=== PATIENT | female | born 1980 | race Two or more races ===

== ENCOUNTER 2017-01-03 11:46 | Emergency (ER) | payer MEDICAID ==
[~2017-01-03] VITALS: Ht 137.2 cm; Wt 53.1 kg
[2017-01-03] MEDS ORDERED: ADVAIR HFA 115-12 GM INH (12:18)
[2017-01-03] MEDS ORDERED: LABETALOL HCL200 MG ORAL (12:18)
[2017-01-03 12:20] VITALS: BP 159/100
--- NOTE | 2017-01-03 12:25 | Emergency Room Report ---
History of Present Illness General Chief Complaint: Eye Problems Source: Patient Present Illness HPI 36 YO Female presents to the ED c/o : bilateral eye redness, discharge, and increased lacrimation x 2 days. Pt. reports symptoms began in the left eye preceded by increased allergies with rhinorrhea and sneezing. denies eye pain. Pt reports moderate thick sticky d/c since this am. Denies FB sensation, Loss of vision, Floaters, Flashing lights, Diplopia/blurry vision. Denies fevers, chills, nausea, vomiting, or joint pain. Denies CP, Palpitations, LOC, AMS,or a sudden severe headache. Allergies: Coded Allergies: No Known Allergies (Unverified , 01/03/17) Patient History Past Medical History: see triage record Past Surgical History: none Pertinent Family History: none Now: No : 1 Para: 1 Reviewed Nursing Documentation: PMH: Agreed, PSxH: Agreed Nursing Documentation-PMH Hx Hypertension: Yes Hx Asthma: Yes Review of Systems All Other Systems: negative except mentioned in HPI Physical Exam Vital Signs Date Time Temp Pulse Resp B/P Pulse Ox O2 Delivery O2 Flow Rate FiO2 01/03/17 12:12 98.1 66 16 159/100 95 Room Air Sp02 EP Interpretation: reviewed, normal General Appearance: no apparent distress, alert, GCS 15, non-toxic Head: normocephalic, atraumatic Eyes: bilateral eye EOMI, bilateral eye PERRL, bilateral eye normal inspection , bilateral eye other - no photophobia, erythema and d/c noted bilaterally., bilateral eye visual acuity - 20/20 left, and bilateral, 20/25 right ENT: hearing grossly normal, normal pharynx, no angioedema, normal voice Neck: full range of motion, supple/symm/no masses Respiratory: lungs clear, normal breath sounds, speaking full sentences Cardiovascular #1: regular rate, rhythm, no edema Musculoskeletal: back normal, gait/station normal, normal range of motion, non- tender Neurologic: alert, oriented x3, responsive, motor strength/tone normal, sensory intact, speech normal Psychiatric: judgement/insight normal, memory normal, mood/affect normal Skin: normal color, no rash, warm/dry, well hydrated Lymphatic: no adenopathy Medical Decision Making PA Attestation Dr. Ferrer is my supervising Physician whom patient management has been discussed with. Diagnostic Impression: Primary Impression: Conjunctivitis of both eyes Qualified Codes: H10.33 - Unspecified acute conjunctivitis, bilateral ER Course Pt presents to the ED c/o : bilateral eye redness, discharge, and increased lacrimation x 2 days. Pt. reports symptoms began in the left eye preceded by increased allergies with rhinorrhea and sneezing. denies eye pain. Pt reports moderate thick sticky d/c since this am. Denies FB sensation, Loss of vision, Floaters, Flashing lights, Diplopia/blurry vision. Ddx considered but are not limited to: corneal abrasion, acute glaucoma, globe rupture, FB, Corneal Ulcer, conjunctivitis. Iridis, orbital cellulitis,keratitis , sinusitis Vital signs: are WNL, pt. is afebrile VA: 20/20 bilateral and left eye, right eye is 20/25 -pt does not wear corrective lenses. H&PE are most consistent with: bacterial conjunctivitis, and allergic rhinitis ORDERS: none at this time. ED INTERVENTIONS: none at this time. DISCHARGE: At this time pt. is stable for d/c to home. Will provide printed patient care instructions, and any necessary prescriptions. Care plan and follow up instructions have been discussed with the patient prior to discharge. Last Vital Signs Date Time Temp Pulse Resp B/P Pulse Ox O2 Delivery O2 Flow Rate FiO2 01/03/17 12:12 98.1 66 16 159/100 95 Room Air Disposition: HOME, SELF-CARE Condition: Stable Scripts Ofloxacin (OCUFLOX) 5 Ml Drops 3 DROP OP BID for 5 Days, #5 ML Prov: Breann Serna 01/03/17 Cetirizine Hcl* (ZYRTEC*) 10 Mg Tablet 10 MG ORAL DAILY for 30 Days, #30 TAB 0 Refills Prov: Breann Serna 01/03/17 Patient Instructions: Bacterial Conjunctivitis, [id number] Additional Instructions: Take medications as directed. Follow up with PCP in 3-5 days Return sooner to ED if new symptoms occur, or current symptoms become worse. - Please note that this Emergency Department Report was dictated using [employer] school technology software, occasionally this can lead to erroneous entry secondary to interpretation by the dictation equipment. Breann Serna January 03, 2017 12:25
[2017-01-03] MEDS ORDERED: ZYRTEC10 MG ORAL ×2 (12:36→12:51)
[2017-01-03] MEDS ORDERED: OCUFLOX5 ML OP ×2 (12:36→12:51)
[2017-01-03 13:05] VITALS: BP 120/70
== END 2017-01-03 13:05 | disposition home or self-care (01) ==
LOC: EMR 12:30
DX: H10.33 Unspecified acute conjunctivitis, bilateral (principal); I10 Essential (primary) hypertension; J45.909 Unspecified asthma, uncomplicated
CPT/HCPCS: 99284

== ENCOUNTER 2020-05-27 14:02 | Inpatient (IN) | payer MEDICAID ==
[~2020-05-27] VITALS: Ht 137.2 cm; Wt 64.8 kg
[~2020-05-27 14:02] MED LIST: ADVAIR HFA 115-12 GM INH; LABETALOL HCL200 MG ORAL; OCUFLOX5 ML OP; ZYRTEC10 MG ORAL
[2020-05-27 14:28] VITALS: BP 178/100
[2020-05-27] MEDS ORDERED: Morphine Sulfate 2mg/ml Inj(IV/IM USE ONLY) IVP ONE ×3 (14:45→18:45)
[2020-05-27] MEDS ORDERED: Omnipaque-300 100ml vial INJ PRN (14:45)
[2020-05-27] MEDS ORDERED: NIFEdipine 10mg cap ORAL SCH (14:45)
[2020-05-27 15:34] LABS: HEMATOCRIT 45.4 % (37.0-47.0); HEMOGLOBIN 16.6 G/DL (12.0-16.0); MEAN CORPUSCULAR VOLUME 96 FL (80-99); PLATELET COUNT 507 K/UL (150-450); RED BLOOD COUNT 4.73 M/UL (4.20-5.40); RED CELL DISTRIBUTION WIDTH 11.5 % (11.6-14.8); WHITE BLOOD COUNT 18.6 K/UL (4.8-10.8)
[2020-05-27 15:35] LABS: INR 0.9 (0.9-1.1)
[2020-05-27 15:45] LABS: LYMPHOCYTES % (AUTO) 16.8 % (20.0-45.0); MONOCYTES % (AUTO) 6.8 % (1.0-10.0); NEUTROPHILS % (AUTO) 74.8 % (45.0-75.0)
[2020-05-27 15:46] LABS: BASOPHILS % (AUTO) 1.1 % (0.0-2.0); EOSINOPHILS % (AUTO) 0.5 % (0.0-3.0)
[2020-05-27 15:51] LABS: APPEARANCE,URINE SLIGHTLY CLOUDY; BILIRUBIN, URINE NEGATIVE (NEGATIVE); COLOR,URINE PALE YELLOW; GLUCOSE, URINE (UA) NEGATIVE (NEGATIVE); KETONES,URINE NEGATIVE (NEGATIVE); LEUKOCYTE ESTERASE ,URINE 1+ (NEGATIVE); NITRITE,URINE NEGATIVE (NEGATIVE); PH,URINE 7 (4.5-8.0); PROTEIN,URINE NEGATIVE (NEGATIVE); UROBILINOGEN,URINE NORMAL MG/DL (0.0-1.0)
[2020-05-27 15:59] LABS: ALANINE AMINOTRANSFERASE 113 U/L (12-78); ALBUMIN 4.3 G/DL (3.4-5.0); ALBUMIN/GLOBULIN RATIO 1.1 (1.0-2.7); ALKALINE PHOSPHATASE 132 U/L (46-116); ANION GAP 10 mmol/L (5-15); ASPARTATE AMINO TRANSFERASE 104 U/L (15-37); BILIRUBIN,TOTAL 0.5 MG/DL (0.2-1.0); BLOOD UREA NITROGEN 7 mg/dL (7-18); CALCIUM 9.5 MG/DL (8.5-10.1); CARBON DIOXIDE 31 MMOL/L (21-32); CHLORIDE 102 MMOL/L (98-107); CREATININE 0.7 MG/DL (0.55-1.30); POTASSIUM 2.8 MMOL/L (3.5-5.1); SODIUM 143 MMOL/L (136-145)
--- NOTE | 2020-05-27 16:25 | Emergency Room Report ---
History of Present Illness General Chief Complaint: Abdominal Pain Source: Patient Present Illness HPI 40-year-old female with recent history of that occurred 6 months ago and hypertension currently taking nifedipine here complaining of sudden onset of right upper quadrant abdominal pain with few bouts of nonbloody emesis and feeling nauseated. Denies any diarrhea, constipation, blood in stool. Denies any fever and chills, chest pain, shortness of breath, headache and dizziness. Patient no longer breast-feeds. 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 Patient denies any urinary symptoms at this time. Denies . Has not taken medication for symptom relief. Denies any drinking alcohol or tobacco smoke marijuana use. Does not recall whether the symptoms started after eating anything different. Denies any acid reflux. Also feels flatulence and reports that the abdomen was very distended last night however was able to pass gas earlier today. Allergies: Coded Allergies: No Known Allergies (Unverified , 01/03/17) COVID-19 Screening Contact w/high risk pt: No Experienced COVID-19 symptoms?: No COVID-19 Testing performed WOOD TYPE CUTTER: No Patient History Past Medical History: see triage record Past Surgical History: none Pertinent Family History: none Last Menstrual Period: 04/24/20 Now: No Immunizations: UTD Reviewed Nursing Documentation: PMH: Agreed; PSxH: Agreed Nursing Documentation-PMH Past Medical History: No History, Except For Hx Hypertension: Yes Hx Asthma: Yes Review of Systems All Other Systems: negative except mentioned in HPI Physical Exam Vital Signs Date Time Temp Pulse Resp B/P (MAP) Pulse Ox O2 Delivery O2 Flow Rate FiO2 05/27/20 14:19 98.2 74 17 178/100 (126) 98 Room Air Sp02 EP Interpretation: reviewed, normal General Appearance: no apparent distress, alert, GCS 15, non-toxic Head: normocephalic, atraumatic Eyes: bilateral eye normal inspection, bilateral eye PERRL ENT: hearing grossly normal, normal pharynx, no angioedema, normal voice Neck: full range of motion, supple/symm/no masses Respiratory: chest non-tender, lungs clear, normal breath sounds, no rhonchi, no retraction, speaking full sentences Cardiovascular #1: regular rate, rhythm, no edema Gastrointestinal: normal bowel sounds, non tender, soft, no guarding, no hernia, no pulsatile mass, no rebound Rectal: deferred Genitourinary: no CVA tenderness Musculoskeletal: back normal, no calf tenderness Neurologic: alert, motor strength/tone normal, oriented x3, sensory intact, responsive, speech normal Psychiatric: judgement/insight normal, memory normal, mood/affect normal, no suicidal/homicidal ideation Skin: no rash Lymphatic: no adenopathy Medical Decision Making PA Attestation All my diagnosis and treatment plans were reviewed ad discussed with my supervising physician Dr. Lacey Diagnostic Impression: Primary Impression: Cholecystitis Additional Impression: Cholelithiasis ER Course 40-year-old female with recent history of that occurred 6 months ago and hypertension currently taking nifedipine here complaining of sudden onset of right upper quadrant abdominal pain with few bouts of nonbloody emesis and f eeling nauseated. Denies any diarrhea, constipation, blood in stool. Denies any fever and chills, chest pain, shortness of breath, headache and dizziness. Patient no longer breast-feeds. 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 Patient denies any urinary symptoms at this time. Denies . Has not taken medication for symptom relief. Denies any drinking alcohol or tobacco smoke marijuana use. Does not recall whether the symptoms started after eating anything different. Denies any acid reflux. Also feels flatulence and reports that the abdomen was very disten ded last night however was able to pass gas earlier today. Ddx considered but are not limited to: appendicitis, cholecystis, gastritis, gastroenteritis, UTI, pyelonephritis, SBO, diverticulitis, Vital signs: are WNL, pt. is afebrile H&PE are most consistent with: Cholecystitis, cholelithiasis ORDERS: abdominal CT, abdominal pain set, EKG, abdominal ultrasound ED INTERVENTIONS: NS bolus, morphine, Zofran, Pepcid, Zosyn, potassium Patient was admitted with diagnosis of cholecystitis to Dr. Reyes under supervision of : Abhijit pt stable at time of admission EKG Diagnostic Results Rate: normal Rhythm: NSR ST Segments: no acute changes Other Impression No acute ST changes CT/MRI/US Diagnostic Results CT/MRI/US Diagnostic Results #1: Imaging Test Ordered: CT abdomen pelvis without contrast Impression FINDINGS: Lung bases: No significant abnormality. ABDOMEN: Liver: The liver is diffusely hypodense suggestive of steatosis. Gallbladder and bile ducts: Gallbladder distention. No calcified gallstones. Pancreas: No significant abnormality. Spleen: No significant abnormality. Adrenals: No significant abnormality. Kidneys and ureters: Small fluid attenuating left renal lesions, likely cysts. No calcified renal or ureteral calculi. No hydronephrosis. Stomach and bowel: No significant abnormality. Bowel is nondilated. PELVIS: Appendix: No findings to suggest acute appendicitis. Bladder: No significant abnormality. Reproductive: Unremarkable as visualized. ABDOMEN and PELVIS: Intraperitoneal space: Trace pelvic free fluid is likely physiologic. No free air or loculated fluid collection. Bones/joints: No acute fracture or malalignment. Soft tissues: Small fat containing periumbilical hernia. Vasculature: No significant abnormality. No abdominal aortic aneurysm. Lymph nodes: No significant abnormality. IMPRESSION: 1. Gallbladder distention. No calcified gallstones. 2. Trace pelvic free fluid is likely physiologic. 3. Hepatic steatosis. CT/MRI/US Diagnostic Results #2: Imaging Test Ordered: RUQ abd US Impression cholelithiasis at gallbladder neck with gallbladder thickening Last Vital Signs Date Time Temp Pulse Resp B/P (MAP) Pulse Ox O2 Delivery O2 Flow Rate FiO2 05/27/20 15:04 74 178/100 05/27/20 14:28 17 Room Air 05/27/20 14:28 98.2 98 Disposition: ADMITTED INPATIENT Condition: Serious Referrals: NON PHYSICIAN (PCP) Rahat Perera May 27, 2020 16:25
[2020-05-27 16:30] VITALS: BP 145/87
[2020-05-27] MEDS ORDERED: Piperacillin/Tazobactam 3.375 GM in NS 110 ML IVPB ONE (16:45)
--- NOTE | 2020-05-27 16:54 | Diagnostic Imaging Report ---
EXAM: CT Abdomen and Pelvis With Intravenous Contrast CLINICAL HISTORY: ABD PAIN TECHNIQUE: Axial computed tomography images of the abdomen and pelvis with intravenous contrast. CTDI is 5.7 mGy and DLP is 280.80 mGy-cm. One or more of the following dose reduction techniques were used: automated exposure control, adjustment of the mA and/or kV according to patient size, use of iterative reconstruction technique. COMPARISON: No relevant prior studies available. FINDINGS: Lung bases: No significant abnormality. ABDOMEN: Liver: The liver is diffusely hypodense suggestive of steatosis. Gallbladder and bile ducts: Gallbladder distention. No calcified gallstones. Pancreas: No significant abnormality. Spleen: No significant abnormality. Adrenals: No significant abnormality. Kidneys and ureters: Small fluid attenuating left renal lesions, likely cysts. No calcified renal or ureteral calculi. No hydronephrosis. Stomach and bowel: No significant abnormality. Bowel is nondilated. PELVIS: Appendix: No findings to suggest acute appendicitis. Bladder: No significant abnormality. Reproductive: Unremarkable as visualized. ABDOMEN and PELVIS: Intraperitoneal space: Trace pelvic free fluid is likely physiologic. No free air or loculated fluid collection. Bones/joints: No acute fracture or malalignment. Soft tissues: Small fat containing periumbilical hernia. Vasculature: No significant abnormality. No abdominal aortic aneurysm. Lymph nodes: No significant abnormality. IMPRESSION: 1. Gallbladder distention. No calcified gallstones. 2. Trace pelvic free fluid is likely physiologic. 3. Hepatic steatosis.
[2020-05-27 18:15] VITALS: BP 141/83
--- NOTE | 2020-05-27 19:07 | Diagnostic Imaging Report ---
EXAM: US Abdomen Limited, Right Upper Quadrant CLINICAL HISTORY: PAIN TECHNIQUE: Real-time ultrasound of the right upper quadrant with image documentation. COMPARISON: CT 05/27/2020 FINDINGS: Limitations: Body habitus and bowel gas. Liver: Diffusely increased hepatic echogenicity is suggestive of steatosis. The portal vein is patent with normal direction of flow. No focal hepatic lesions. Gallbladder: Cholelithiasis. Gallbladder distention. Thickened gallbladder wall measures up to 6 mm. Mild pericholecystic fluid. Common bile duct: Mildly dilated common bile duct measures up to 7 mm. No stones. Pancreas: Unremarkable as visualized. Right kidney: Small right renal cyst and possible small cortical calcification. No hydronephrosis. No solid mass. IMPRESSION: 1. Cholelithiasis, gallbladder wall thickening, biliary dilatation, and pericholecystic fluid can be seen in the setting of acute cholecystitis. 2. Hepatic steatosis.
[2020-05-27] MEDS ORDERED: Mylanta II UD 30ml ORAL PRN (20:00)
[2020-05-27] MEDS ORDERED: Albuterol/Ipratropium 3ml neb HHN PRN (20:00)
--- NOTE | 2020-05-27 20:24 | History and Physical ---
History of Present Illness General Date patient seen: May 27, 2020 Reason for Hospitalization: Abdominal Pain Present Illness HPI Mrs. Younger is a 40F with PMH of Histiocytosis X, HTN, asthma, and 2 C-sections who presents for worsening abdominal pain. Patient reports on Thursday developing acute onset RUQ abdominal pain; pain is sharp, non-radiating, 5-10/10 scale, with no alleviating factors. She notes eating makes it worse. Denies previous episodes in the past. She has associated nausea, chills, and dyspepsia. Denies fevers, sob, chest pain, epigastric pain, constipation, diarrhea, or dysuria. Prior to Thursday patient was feeling well. She is able to carry out all her ADL's at home and walk up multiple flights of stairs without issues. No recent asthma exacerbations; reports "rarely using her inhalers." Denies any recent illnesses, sick contacts, or travels. She does not drink alcohol. Rest of 10 point ROS is negative besides what stated above. In the ED, patient is hemodynamically stable and found to have elevated WBC w/ US showing cholelithiasis w/ gallbladder wall thickening and pericholecystic fluid concerning for cholecystitis. She will be admitted to med/surg, NPO, on abx pending possible surgery tomorrow. PMH: Histiocytosis X, asthma, HTN Sx: Splenectomy, C-sextion x2 (most recent 7 months ago) Fx: mother and father had diabetes, father had kidney disease All: nka Soc: denies smoking, alcohol use, or recreational drug use Allergies: Coded Allergies: No Known Allergies (Unverified , 01/03/17) COVID-19 Screening Contact w/high risk pt: No Experienced COVID-19 symptoms?: No Medication History Scheduled Cetirizine Hcl* (Zyrtec*), 10 MG ORAL DAILY Fluticasone/Salmeterol (Advair Hfa 115-21 Mcg Inhaler), 2 PUFFS INH EVERY 12 HOURS, (Reported) Labetalol Hcl* (Normodyne*), 200 MG ORAL TWICE A DAY, (Reported) Ofloxacin (Ocuflox), 3 DROP OP BID Patient History Healthcare decision maker Resuscitation status Advanced Directive on File Review of Systems Constitutional: Reports: chills; Denies: no symptoms, see HPI, sweats, fever, malaise, weakness, other Eye: Denies: no symptoms, see HPI, eye pain, blurred vision, tearing, double vision, nose pain, nose congestion, acuity changes, discharge, other ENT: Denies: no symptoms, see HPI, ear pain, ear discharge, nose pain, nose congestion, throat pain, throat swelling, mouth pain, hearing loss, nasal discharge, other Respiratory: Denies: no symptoms, see HPI, cough, orthopnea, shortness of breath, stridor, wheezing, CARVAJAL, sputum, other Cardiovascular: Denies: no symptoms, see HPI, chest pain, edema, palpitations, syncope, PND, other Gastrointestinal: Reports: abdominal pain, constipation, nausea Genitourinary: Denies: no symptoms, see HPI, discharge, dysuria, frequency, hematuria, pain, retention, incontinence, urgency, vag bleed/dc, other Musculoskeletal: Denies: no symptoms, see HPI, back pain, gout, joint pain, joint swelling, muscle pain, muscle stiffness, other Skin: Denies: no symptoms, see HPI, rash, change in color, change in hair/nails , dryness, lesions, other Psychiatric: Denies: no symptoms, see HPI, prior hx, anxiety, depressed feelings, emotional problems, SI, HI, hallucinations, other Neurological: Denies: no symptoms, see HPI, headache, numbness, paresthesia, seizure, tingling, tremors, focal weakness, syncope, dizziness, other Endocrine: Denies: no symptoms, see HPI, excessive sweating, flushing, intolerance to temperature, increased thirst, increased urine, unexplained weight loss, other Hematologic/Lymphatic: Denies: no symptoms, see HPI, anemia, blood clots, easy bleeding, easy bruising, swollen glands, diathesis, other Physical Exam General Appearance: no apparent distress, alert, alert oriented x3 HEENT: normocephalic, atraumatic, PERRL, supple, no JVD Neck: normal alignment, supple Respiratory/Chest: lungs clear, normal breath sounds, no respiratory distress Cardiovascular/Chest: normal rate, regular rhythm, no JVD Abdomen: normal bowel sounds, soft, no organomegaly, other - RUQ tenderness, +christine sign Extremities: normal range of motion, non-tender, non-pitting Neurologic: land checker II-XII grossly normal, oriented x 3 Last 24 Hour Vital Signs Date Time Temp Pulse Resp B/P (MAP) Pulse Ox O2 Delivery O2 Flow Rate FiO2 05/27/20 18:15 98.1 83 18 141/83 100 Room Air 05/27/20 16:30 98.2 74 17 145/87 98 Room Air 05/27/20 15:35 98.2 05/27/20 15:35 98.2 05/27/20 15:04 74 178/100 05/27/20 14:28 74 17 Room Air 05/27/20 14:28 98.2 74 17 178/100 98 Room Air 05/27/20 14:19 98.2 74 17 178/100 (126) 98 Room Air Laboratory Tests Test 05/27/20 15:00 White Blood Count 18.6 K/UL (4.8-10.8) H Red Blood Count 4.73 M/UL (4.20-5.40) Hemoglobin 16.6 G/DL (12.0-16.0) H Hematocrit 45.4 % (37.0-47.0) Mean Corpuscular Volume 96 FL (80-99) Mean Corpuscular Hemoglobin 35.1 PG (27.0-31.0) H Mean Corpuscular Hemoglobin Concent 36.6 G/DL (32.0-36.0) H Red Cell Distribution Width 11.5 % (11.6-14.8) L Platelet Count 507 K/UL (150-450) H Mean Platelet Volume 8.3 FL (6.5-10.1) Neutrophils (%) (Auto) 74.8 % (45.0-75.0) Lymphocytes (%) (Auto) 16.8 % (20.0-45.0) L Monocytes (%) (Auto) 6.8 % (1.0-10.0) Eosinophils (%) (Auto) 0.5 % (0.0-3.0) Basophils (%) (Auto) 1.1 % (0.0-2.0) Prothrombin Time 10.4 SEC (9.30-11.50) Prothromb Time International Ratio 0.9 (0.9-1.1) Activated Partial Thromboplast Time 28 SEC (23-33) Urine Color Pale yellow Urine Appearance Slightly cloudy Urine pH 7 (4.5-8.0) Urine Specific [place] 1.010 (1.005-1.035) Urine Protein Negative (NEGATIVE) Urine Glucose (UA) Negative (NEGATIVE) Urine Ketones Negative (NEGATIVE) Urine Blood 1+ (NEGATIVE) H Urine Nitrite Negative (NEGATIVE) Urine Bilirubin Negative (NEGATIVE) Urine Urobilinogen Normal MG/DL (0.0-1.0) Urine Leukocyte Esterase 1+ (NEGATIVE) H Urine RBC 2-4 /HPF (0 - 2) H Urine WBC 2-4 /HPF (0 - 2) Urine Squamous Epithelial Cells Moderate /LPF (NONE/OCC) H Urine Bacteria Few /HPF (NONE) Sodium Level 143 MMOL/L (136-145) Potassium Level 2.8 MMOL/L (3.5-5.1) L Chloride Level 102 MMOL/L (98-107) Carbon Dioxide Level 31 MMOL/L (21-32) Anion Gap 10 mmol/L (5-15) Blood Urea Nitrogen 7 mg/dL (7-18) Creatinine 0.7 MG/DL (0.55-1.30) Estimat Glomerular Filtration Rate > 60 mL/min (>60) Glucose Level 111 MG/DL (74-106) H Calcium Level 9.5 MG/DL (8.5-10.1) Total Bilirubin 0.5 MG/DL (0.2-1.0) Aspartate Amino Transf (AST/SGOT) 104 U/L (15-37) H Alanine Aminotransferase (ALT/SGPT) 113 U/L (12-78) H Alkaline Phosphatase 132 U/L (46-116) H Troponin I 0.000 ng/mL (0.000-0.056) Total Protein 8.2 G/DL (6.4-8.2) Albumin 4.3 G/DL (3.4-5.0) Globulin 3.9 g/dL Albumin/Globulin Ratio 1.1 (1.0-2.7) Lipase 169 U/L (73-393) Urine Opiates Screen Negative (NEGATIVE) Urine Barbiturates Screen Negative (NEGATIVE) Phencyclidine (PCP) Screen Negative (NEGATIVE) Urine Amphetamines Screen Negative (NEGATIVE) Urine Benzodiazepines Screen Negative (NEGATIVE) Urine Cocaine Screen Negative (NEGATIVE) Urine Marijuana (THC) Screen Negative (NEGATIVE) Serum Alcohol < 3 mg/dL Height (Feet): 4 Height (Inches): 6.00 Weight (Pounds): 127 Medications Current Medications Medications (Trade) Dose Ordered Sig/Christian Route PRN Reason Start Time Stop Time Status Last Admin Dose Admin Acetaminophen (Tylenol) 650 mg Q4H PRN ORAL Temp >100.5 05/27/20 20:00 06/26/20 19:59 Al Hydroxide/Mg Hydroxide (Mylanta II) 30 ml Q6H PRN ORAL dyspepsia 05/27/20 20:00 06/26/20 19:59 Albuterol/ Ipratropium (Albuterol/ Ipratropium) 3 ml Q6H PRN HHN Shortness of Breath 05/27/20 20:00 06/01/20 19:59 Bisacodyl (Dulcolax) 10 mg HSPRN PRN RECTAL Constipation 05/27/20 21:00 08/25/20 20:59 Dextrose (Dextrose 50%) 25 ml Q30M PRN IV Hypoglycemia 05/27/20 20:00 08/25/20 19:59 Dextrose (Dextrose 50%) 50 ml Q30M PRN IV Hypoglycemia 05/27/20 20:00 08/25/20 19:59 Heparin Sodium (Porcine) (Heparin 5000 units/ml) 5,000 units EVERY 12 HOURS SUBQ 05/27/20 21:00 07/11/20 20:59 UNV Morphine Sulfate (Morphine Sulfate) 2 mg Q4H PRN IVP Severe Pain (Pain Scale 7-10) 05/27/20 20:00 06/03/20 19:59 Nifedipine (Adalat) 10 mg NOW ORAL 05/27/20 14:45 06/26/20 14:44 05/27/20 15:04 Nifedipine (Procardia XL) 30 mg DAILY ORAL 05/28/20 09:00 06/27/20 08:59 UNV Ondansetron HCl (Zofran) 4 mg Q6H PRN IVP Nausea & Vomiting 05/27/20 20:00 06/26/20 19:59 Piperacillin Sod/ Tazobactam Sod 3.375 gm/Sodium Chloride 110 ml @ 220 mls/hr Q6HR IVPB 05/28/20 00:00 06/04/20 00:00 UNV Polyethylene Glycol (Miralax) 17 gm HSPRN PRN ORAL Constipation 05/27/20 21:00 06/26/20 20:59 Sodium Chloride 1,000 ml @ 100 mls/hr Q10H IVLG 05/27/20 21:00 06/26/20 20:59 UNV Sodium Chloride 1,000 ml @ 100 mls/hr Q10H ONCE IV 05/27/20 14:45 05/28/20 00:44 05/27/20 15:05 Assessment/Plan Assessment/Plan: Mrs. Younger is a 40F with PMH of Histiocytosis X, asthma, and HTN who presents for cholecystitis A: # RUQ Pain 2/2 Cholecystitis # Cholelithiasis # Transaminitis 2/2 Cholecystitis # Leukocytosis # Hypokalemia # Hx of Histocytosis X # Hx of Splenectomy # Hx of Asthma # Essential HTN - uncontrolled P: - hemodynamically stable - US reviewed showing cholelithiasis w/ signs of cholecystitis - gallbladder wall thickening and pericholecystic fluid - slightly dilated CBD at 7mm, elevated alk phos may consider choledocholithiasis - Strict NPO besides ice chips/meds - continue zosyn for gram neg. and anaerobic coverage - IVF - electrolyte repletion - EKG: reviewed showing nsr, without acute ST changes or intraventricular abnormalities. - RCRI score 0 - deeming her low risk for intermediate risk surgery - METS > 4, able to walk multiple flights of stairs without issues - Surgery, Dr. Baird is consulted and to follow up - CM CODE: Full GI: none Fluids: NS 100 cc DVT: Heparin 5000 mg BID, hold morning dose Diet: NPO Abx: zosyn Dispo: pending cholecystomy In addition to the usual care above I spent additional time reviewing records in the EMR and paper charts including physician documentation, nursing documentation, lab results, imaging and clinical documentation. Total time included was 33 min. Advanced care planning 17 minutes was spent which included discussion of both acute and chronic medical illnesses, code status, goals of care and advanced directives and POLST. Time spent on this encounter was 80 minutes which included 45 minutes of counseling and care coordination. I discussed with the nurse at bedside and surgery Dr. Baird. Time of note may not reflect time patient was seen. Josué Gomez D.O May 27, 2020 20:24
[2020-05-27] MEDS ORDERED: Heparin 5000 units/ml inj SUBQ SCH (21:00)
[2020-05-27] MEDS ORDERED: Miralax 17gm pkt ORAL PRN (21:00)
[2020-05-27 21:10] VITALS: BP 136/78
--- NOTE | 2020-05-27 21:10 | General Progress Note ---
Advance Care Planning Advance Care Planning Advance Care Planning [facility] An independent Hospitalist group, where every patient is our [facility] Internal Medicine Hospitalist Advanced Care Planning Note Please contact us at Date of Discussion: A [id number] discussion with the patient regarding the patient's advanced care planning took place during this hospitalization on the above date. The discussion included the explanation and discussion of advance directives and associated forms/documents, as well as the patient's current code status. We also discussed at length the patient's medical conditions (both acute and chroni c), general prognosis, treatment options, and goals of care. The following summarizes the discussion: Advance Care Planning/Goals of Care: - Will attempt to fill out an AD and/or POLST with the patient prior to discharge, if not already completed - Continue current evaluation and management of any acute and chronic medical issues - Will continue to support the patient/family - Will continue to discuss both short- and long-term goals of care DPOA-HC/Surrogate Decision Maker: None currently appointed Code Status: Full Code Advanced Care Planning Forms/Documents Completed: Deferred until later encounter/visit A total of 16 minutes was spent on this discussion, including counseling, answering questions, and completing, if any, pertinent advanced care planning forms/documents. Time of note may not reflect time of encounter. Josué Gomez D.O May 27, 2020 21:10
[2020-05-27] MEDS: Piperacillin/Tazobactam 3.375 GM in NS 110 ML IVPB SCH (22:13)
[2020-05-28] MEDS: Morphine Sulfate 2mg/ml Inj(IV/IM USE ONLY) IVP PRN ×2 (00:49→08:52)
[2020-05-28 04:00] VITALS: BP 142/88
[2020-05-28] MEDS: Piperacillin/Tazobactam 3.375 GM in NS 110 ML IVPB SCH ×3 (04:53→20:53)
[2020-05-28 07:18] LABS: BASOPHILS % (AUTO) 1.6 % (0.0-2.0); HEMATOCRIT 44.3 % (37.0-47.0); LYMPHOCYTES % (AUTO) 14.6 % (20.0-45.0); MEAN CORPUSCULAR VOLUME 93 FL (80-99); MONOCYTES % (AUTO) 6.6 % (1.0-10.0); NEUTROPHILS % (AUTO) 77.2 % (45.0-75.0); PLATELET COUNT 535 K/UL (150-450); RED BLOOD COUNT 4.78 M/UL (4.20-5.40); RED CELL DISTRIBUTION WIDTH 11.6 % (11.6-14.8); WHITE BLOOD COUNT 13.8 K/UL (4.8-10.8)
[2020-05-28 07:53] LABS: ALANINE AMINOTRANSFERASE 579 U/L (12-78); ALBUMIN 3.8 G/DL (3.4-5.0); ALBUMIN/GLOBULIN RATIO 1.1 (1.0-2.7); ALKALINE PHOSPHATASE 252 U/L (46-116); ANION GAP 11 mmol/L (5-15); ASPARTATE AMINO TRANSFERASE 531 U/L (15-37); BILIRUBIN,TOTAL 3.1 MG/DL (0.2-1.0); BLOOD UREA NITROGEN 7 mg/dL (7-18); CALCIUM 8.8 MG/DL (8.5-10.1); CARBON DIOXIDE 25 MMOL/L (21-32); CHLORIDE 106 MMOL/L (98-107); CHOLESTEROL 150 MG/DL (< 200); CREATININE 0.6 MG/DL (0.55-1.30); HDL CHOLESTEROL 34 MG/DL (40-60); POTASSIUM 3.2 MMOL/L (3.5-5.1); SODIUM 142 MMOL/L (136-145); TRIGLYCERIDES 196 MG/DL (30-150)
[2020-05-28 07:55] LABS: BILIRUBIN,DIRECT 2.1 MG/DL (0.0-0.3)
[2020-05-28 08:00] VITALS: BP 139/86
[2020-05-28] MEDS ORDERED: Potassium Chloride 10 MEQ in D5 1/2NS 1,000 ML IV SCH (11:00)
[2020-05-28 12:00] VITALS: BP 129/83
--- NOTE | 2020-05-28 12:13 | General Progress Note ---
Subjective Date patient seen: May 28, 2020 ROS Limited/Unobtainable: No Constitutional: Denies: no symptoms, chills, diaphoresis, fever, malaise, weakness, other HEENT: Denies: no symptoms, eye pain, blurred vision, tearing, double vision, ear pain, ear discharge, nose pain, nose congestion, throat pain, throat swelling, mouth pain, mouth swelling, other Cardiovascular: Denies: no symptoms, chest pain, edema, irregular heart rate, lightheadedness, palpitations, syncope, other Respiratory: Denies: no symptoms, cough, orthopnea, shortness of breath, SOB with excertion, SOB at rest, sputum, stridor, wheezing, other Gastrointestinal/Abdominal: Reports: no symptoms, abdomen distended, abdominal pain, black stools, tarry stools, blood in stool, constipated, diarrhea, difficulty swallowing, nausea, poor appetite, poor fluid intake, rectal bleeding , vomiting, other Genitourinary: Denies: no symptoms, burning, discharge, frequency, flank pain, hematuria, incontinence, pain, urgency, other Neurologic/Psychiatric: Denies: no symptoms, anxiety, depressed, emotional problems, headache, numbness, paresthesia, pre-existing deficit, seizure, tingling, tremors, weakness, other Endocrine: Denies: no symptoms, excessive sweating, flushing, intolerance to cold, intolerance to heat, increased hunger, increased thirst, increased urine, unexplained weight gain, unexplained weight loss, other Allergies: Coded Allergies: No Known Allergies (Unverified , 01/03/17) Subjective no acute events overnight. Patient feels better this morning but still has mild RUQ pain. No fevers or chills. Pending MRCP today. Objective Last 24 Hour Vital Signs Date Time Temp Pulse Resp B/P (MAP) Pulse Ox O2 Delivery O2 Flow Rate FiO2 05/28/20 09:00 Room Air 05/28/20 08:52 77 139/86 05/28/20 08:00 98.5 77 17 139/86 (103) 96 05/28/20 05:32 98.1 05/28/20 04:00 97.8 82 18 142/88 (106) 94 05/28/20 01:19 98.1 05/27/20 21:42 Room Air 05/27/20 21:15 98.1 05/27/20 21:10 98.3 80 16 136/78 100 Room Air 05/27/20 21:10 98.3 80 16 136/78 100 Room Air 05/27/20 18:15 98.1 83 18 141/83 100 Room Air 05/27/20 16:30 98.2 74 17 145/87 98 Room Air 05/27/20 15:35 98.2 05/27/20 15:35 98.2 05/27/20 15:04 74 178/100 05/27/20 14:28 74 17 Room Air 05/27/20 14:28 98.2 74 17 178/100 98 Room Air 05/27/20 14:19 98.2 74 17 178/100 (126) 98 Room Air Intake and Output 05/27/20 05/28/20 19:00 07:00 Intake Total 1465.0 ml Balance 1465.0 ml Intake IV Total 1465.0 ml # Voids 5 Laboratory Tests 05/27/20 15:00: White Blood Count 18.6H, Red Blood Count 4.73, Hemoglobin 16.6H, Hematocrit 45.4, Mean Corpuscular Volume 96, Mean Corpuscular Hemoglobin 35.1H, Mean Corpuscular Hemoglobin Concent 36.6H, Red Cell Distribution Width 11.5L, Platelet Count 507H, Mean Platelet Volume 8.3, Neutrophils (%) (Auto) 74.8, Lymphocytes (%) (Auto) 16.8L, Monocytes (%) (Auto) 6.8, Eosinophils (%) (Auto) 0.5, Basophils (%) (Auto) 1.1, Prothrombin Time 10.4, Prothromb Time International Ratio 0.9, Activated Partial Thromboplast Time 28, Urine Color Pale yellow, Urine Appearance Slightly cloudy, Urine pH 7, Urine Specific [place] 1.010, Urine Protein Negative, Urine Glucose (UA) Negative, Urine Ketones Negative, Urine Blood 1+H, Urine Nitrite Negative, Urine Bilirubin Negative, Urine Urobilinogen Normal, Urine Leukocyte Esterase 1+H, Urine RBC 2- 4H, Urine WBC 2-4, Urine Squamous Epithelial Cells ModerateH, Urine Bacteria Few, Sodium Level 143, Potassium Level 2.8L, Chloride Level 102, Carbon Dioxide Level 31, Anion Gap 10, Blood Urea Nitrogen 7, Creatinine 0.7, Estimat Glomerular Filtration Rate > 60, Glucose Level 111H, Calcium Level 9.5, Total Bilirubin 0.5, Aspartate Amino Transf (AST/SGOT) 104H, Alanine Aminotransferase (ALT/SGPT) 113H, Alkaline Phosphatase 132H, Troponin I 0.000, Total Protein 8.2, Albumin 4.3, Globulin 3.9, Albumin/Globulin Ratio 1.1, Lipase 169, Urine Opiates Screen Negative, Urine Barbiturates Screen Negative, Phencyclidine (PCP) Screen Negative, Urine Amphetamines Screen Negative, Urine Benzodiazepines Screen Neg ative, Urine Cocaine Screen Negative, Urine Marijuana (THC) Screen Negative, Serum Alcohol < 3 05/28/20 06:15: White Blood Count 13.8H, Red Blood Count 4.78, Hemoglobin 16.0, Hematocrit 44.3, Mean Corpuscular Volume 93, Mean Corpuscular Hemoglobin 33.4H, Mean Corpuscular Hemoglobin Concent 36.1H, Red Cell Distribution Width 11.6, Platelet Count 535H, Mean Platelet Volume 7.0, Neutrophils (%) (Auto) 77.2H, Lymphocytes (%) (Auto) 14.6L, Monocytes (%) (Auto) 6.6, Eosinophils (%) (Auto) 0.0, Basophils (%) (Auto) 1.6, Sodium Level 142, Potassium Level 3.2L, Chloride Level 106, Carbon Dioxide Level 25, Anion Gap 11, Blood Urea Nitrogen 7, Creatinine 0.6, Estimat Glomerular Filtration Rate > 60, Glucose Level 108H, Calcium Level 8.8, Total Bilirubin 3.1H, Aspartate Amino Transf (AST/SGOT) 531H, Alanine Aminotransferase (ALT/SGPT) 579H, Alkaline Phosphatase 252H, Total Protein 7.4, Albumin 3.8, Globulin 3.6, Albumin/Globulin Ratio 1.1, Hemoglobin A1c 5.5, Direct Bilirubin 2.1H, Triglycerides Level 196H, Cholesterol Level 150, LDL Cholesterol 79, HDL Cholesterol 34L, Cholesterol/HDL Ratio 4.4 Height (Feet): 4 Height (Inches): 6.00 Weight (Pounds): 131 General Appearance: no apparent distress, alert EENT: PERRL/EOMI Neck: normal alignment, normal inspection Cardiovascular: normal rate, regular rhythm, regularly irregular Respiratory/Chest: lungs clear, normal breath sounds Abdomen: normal bowel sounds, soft - mild RUQ pain Extremities: normal range of motion, non-tender Edema: no edema noted Arm (L), no edema noted Arm (R), no edema noted Leg (L), no edema noted Leg (R), no edema noted Pedal (L), no edema noted Pedal (R), no edema noted Generalized Neurologic: ceo & founder II-XII grossly normal, oriented x 3 Assessment/Plan Assessment/Plan: Mrs. Younger is a 40F with PMH of Histiocytosis X, asthma, and HTN who presents for cholecystitis A: # RUQ Pain 2/2 Cholecystitis w/ possible Choledocholithiasis # Cholelithiasis # Onstructive Jaundice 2/2 ?Choledocholithiasis # Transaminitis 2/2 Cholecystitis # Leukocytosis # Hypokalemia # Hx of Histocytosis X # Hx of Splenectomy # Hx of Asthma # Essential HTN - uncontrolled P: - hemodynamically stable - US reviewed showing cholelithiasis w/ signs of cholecystitis - gallbladder wall thickening and pericholecystic fluid - f/u MRCP with worsening cholestatic pattern and elevated LFTs - Strict NPO besides ice chips/meds - continue zosyn for gram neg. and anaerobic coverage - IVF - electrolyte repletion - EKG: reviewed showing nsr, without acute ST changes or intraventricular abnormalities. - RCRI score 0 - deeming her low risk for intermediate risk surgery - METS > 4, able to walk multiple flights of stairs without issues - Surgery, Dr. Baird is consulted and to follow up - GI, Dr. Santiago is consulted for possible ERCP - CM CODE: Full GI: none Fluids: D5 1/2 75 cc DVT: Heparin 5000 mg BID Diet: NPO Abx: zosyn Dispo: pending MRCP and possible ERCP, will need cholecystectomy as well Time spent on this encounter was 40 minutes which included 25 minutes of counseling and care coordination. I discussed with the nurse at bedside and surgery Dr. Baird. Time of note may not reflect time patient was seen. Josué Gomez D.O May 28, 2020 12:13
[2020-05-28] MEDS: D5NS 1,000 ML IV SCH (12:19)
[2020-05-28] MEDS: HYDROcodone/Acetamin 5/325 tab ORAL PRN ×2 (12:32→16:55)
[2020-05-28] MEDS ORDERED: Morphine Sulfate 2mg/ml Inj(IV/IM USE ONLY) IVP PRN (12:52)
[2020-05-28 16:00] VITALS: BP 145/97
--- NOTE | 2020-05-28 17:48 | Diagnostic Imaging Report ---
Indication: Abdominal pain Technique: Coronal and axial single shot fast spin-echo breath-hold, axial T2 FRFSE, 2-D thick slab MRCP, AXIAL 2-D FIESTA fat saturated, axial 3-D dual echo breath-hold, water weighted axial LAVA FLEX, revealed 3-D MRCP images were obtained of the abdomen. MIP reconstructions were generated of the bile ducts Comparison: Abdomen pelvis CT dated 05/20/2017, abdominal ultrasound 927 Findings: Images are degraded by motion artifact. Small filling defects are seen in the gallbladder lumen, consistent with gallstones reported on recent sonogram. There is pericholecystic edema noted. No filling defects are seen in the bile ducts, which are normal in caliber. Normal caliber pancreatic duct. The liver, pancreas are unremarkable. The spleen is not visualized, in retrospect also absent on prior CT scan, inadvertently reported as normal. The adrenals are unremarkable. The kidneys demonstrate small cysts bilaterally. On the coronal T2 images, the bladder is included, demonstrates filling defects. No corresponding abnormality is seen on CT scan. Impression: Cholelithiasis. Gallbladder wall edema raises concern for acute cholecystitis. Consider hepatobiliary nuclear scan to confirm Negative for dilated bile ducts Apparent filling defects within the bladder. Uncertain significance if real. Consider sonography of the bladder to confirm Incidental finding bilateral renal cysts
--- NOTE | 2020-05-28 20:06 | General Progress Note ---
Subjective Allergies: Coded Allergies: No Known Allergies (Unverified , 01/03/17) Objective Last 24 Hour Vital Signs Date Time Temp Pulse Resp B/P (MAP) Pulse Ox O2 Delivery O2 Flow Rate FiO2 05/28/20 17:25 98.2 05/28/20 16:00 98.2 75 18 145/97 (113) 95 05/28/20 12:00 98.6 79 18 129/83 (98) 98 05/28/20 09:00 Room Air 05/28/20 08:52 77 139/86 05/28/20 08:00 98.5 77 17 139/86 (103) 96 05/28/20 05:32 98.1 05/28/20 04:00 97.8 82 18 142/88 (106) 94 05/28/20 01:19 98.1 05/27/20 21:42 Room Air 05/27/20 21:15 98.1 05/27/20 21:10 98.3 80 16 136/78 100 Room Air 05/27/20 21:10 98.3 80 16 136/78 100 Room Air Intake and Output 05/27/20 05/28/20 19:00 07:00 Intake Total 1465.0 ml Balance 1465.0 ml Intake IV Total 1465.0 ml # Voids 5 Laboratory Tests 05/28/20 06:15: White Blood Count 13.8H, Red Blood Count 4.78, Hemoglobin 16.0, Hematocrit 44.3, Mean Corpuscular Volume 93, Mean Corpuscular Hemoglobin 33.4H, Mean Corpuscular Hemoglobin Concent 36.1H, Red Cell Distribution Width 11.6, Platelet Count 535H, Mean Platelet Volume 7.0, Neutrophils (%) (Auto) 77.2H, Lymphocytes (%) (Auto) 14.6L, Monocytes (%) (Auto) 6.6, Eosinophils (%) (Auto) 0.0, Basophils (%) (Auto) 1.6, Sodium Level 142, Potassium Level 3.2L, Chloride Level 106, Carbon Dioxide Level 25, Anion Gap 11, Blood Urea Nitrogen 7, Creatinine 0.6, Estimat Glomerular Filtration Rate > 60, Glucose Level 108H, Hemoglobin A1c 5.5, Calcium Level 8.8, Total Bilirubin 3.1H, Direct Bilirubin 2.1H, Aspartate Amino Transf (AST/SGOT) 531H, Alanine Aminotransferase (ALT/SGPT) 579H, Alkaline Phosphatase 252H, Total Protein 7.4, Albumin 3.8, Globulin 3.6, Albumin/Globulin Ratio 1.1, Triglycerides Level 196H, Cholesterol Level 150, LDL Cholesterol 79, HDL Cholesterol 34L, Cholesterol/HDL Ratio 4.4 Height (Feet): 4 Height (Inches): 6.00 Weight (Pounds): 131 Assessment/Plan Assessment/Plan: Assessment - cholelithiasis - cholecystitis - Elevated LFT but No CBD stone on MRCP Recommendations - NPO - IVF - Abx - Surgical f/u Thank you MD Jerri Guthrie Payman MD May 28, 2020 20:06
[2020-05-28 20:20] VITALS: BP 134/85
[2020-05-28] MEDS: Heparin 5000 units/ml inj SUBQ SCH (20:54)
--- NOTE | 2020-05-28 21:16 | Consultation ---
History of Present Illness General Date patient seen: May 28, 2020 Reason for Hospitalization: Abdominal Pain Present Illness HPI 40F with acute onset of epigastric and RUQ pain for 1 day. came in for evaluation. pain 10/10 on onset now improved and near resolved only 3/10. +n/v. in ED leukocytosis and US with cholecystitis. surgery called to evaluate. first episode. recent c section. has 7 month old premie at home. currently no n/v/f/c Allergies: Coded Allergies: No Known Allergies (Unverified , 01/03/17) COVID-19 Screening Contact w/high risk pt: No Experienced COVID-19 symptoms?: No Medication History Scheduled Cetirizine Hcl* (Zyrtec*), 10 MG ORAL DAILY Fluticasone/Salmeterol (Advair Hfa 115-21 Mcg Inhaler), 2 PUFFS INH EVERY 12 HOURS, (Reported) Labetalol Hcl* (Normodyne*), 200 MG ORAL TWICE A DAY, (Reported) Ofloxacin (Ocuflox), 3 DROP OP BID Patient History History Provided By: Patient Healthcare decision maker Resuscitation status Advanced Directive on File Past Medical/Surgical History Past Medical/Surgical History: (1) Cholelithiasis (2) Cholecystitis Review of Systems Review of Symptoms General ROS: no weight loss or fever Psychological ROS: no depression or mood changes, no memory loss Ophthalmic ROS: no visual changes or eye irritation ENT ROS: no nasal congestion, hearing loss, dizziness Allergy and Immunology ROS: no allergic symptoms or urticaria Hematological and Lymphatic ROS: no swollen glands, unusual bleeding or bruising Endocrine ROS: no polyuria, polydipsia, weight changes, temperature intolerance Respiratory ROS: no cough, shortness of breath, or wheezing Cardiovascular ROS: no chest pain or dyspnea on exertion Gastrointestinal ROS: denies abdominal pain, bright red blood in stool. Musculoskeletal ROS: no myalgias or arthralgias Neurological ROS: no TIA or stroke symptoms Dermatological ROS: no new or changing skin lesions, rashes or pruritis Physical Exam Physical Exam General appearance: alert, cooperative, no distress, appears stated age Head: Normocephalic, without obvious abnormality, atraumatic Eyes: conjunctivae/corneas clear. PERRL, EOM's intact. Fundi benign Throat: Lips, mucosa, and tongue normal. Teeth and gums normal Neck: supple, symmetrical, trachea midline, no adenopathy, thyroid: not enlarged, symmetric, no tenderness/mass/nodules, no carotid bruit and no JVD Lungs: clear to auscultation bilaterally Heart: regular rate and rhythm, S1, S2 normal, no murmur, click, rub or gallop Abdomen: soft, non-tender. Bowel sounds normal. No masses, no organomegaly Extremities: extremities normal, atraumatic, no cyanosis or edema Pulses: 2+ and symmetric Skin: Skin color, texture, turgor normal. No rashes or lesions Neurologic: Grossly normal Last 24 Hour Vital Signs Date Time Temp Pulse Resp B/P (MAP) Pulse Ox O2 Delivery O2 Flow Rate FiO2 05/28/20 20:20 98.4 89 16 134/85 (101) 95 05/28/20 20:13 Room Air 05/28/20 17:25 98.2 05/28/20 16:00 98.2 75 18 145/97 (113) 95 05/28/20 12:00 98.6 79 18 129/83 (98) 98 05/28/20 09:00 Room Air 05/28/20 08:52 77 139/86 05/28/20 08:00 98.5 77 17 139/86 (103) 96 05/28/20 05:32 98.1 05/28/20 04:00 97.8 82 18 142/88 (106) 94 05/28/20 01:19 98.1 05/27/20 21:42 Room Air 05/27/20 21:15 98.1 Intake and Output 05/27/20 05/28/20 18:59 06:59 Intake Total 1437.5 ml Balance 1437.5 ml Intake IV Total 1437.5 ml # Voids 5 Laboratory Tests Test 05/28/20 06:15 White Blood Count 13.8 K/UL (4.8-10.8) H Red Blood Count 4.78 M/UL (4.20-5.40) Hemoglobin 16.0 G/DL (12.0-16.0) Hematocrit 44.3 % (37.0-47.0) Mean Corpuscular Volume 93 FL (80-99) Mean Corpuscular Hemoglobin 33.4 PG (27.0-31.0) H Mean Corpuscular Hemoglobin Concent 36.1 G/DL (32.0-36.0) H Red Cell Distribution Width 11.6 % (11.6-14.8) Platelet Count 535 K/UL (150-450) H Mean Platelet Volume 7.0 FL (6.5-10.1) Neutrophils (%) (Auto) 77.2 % (45.0-75.0) H Lymphocytes (%) (Auto) 14.6 % (20.0-45.0) L Monocytes (%) (Auto) 6.6 % (1.0-10.0) Eosinophils (%) (Auto) 0.0 % (0.0-3.0) Basophils (%) (Auto) 1.6 % (0.0-2.0) Sodium Level 142 MMOL/L (136-145) Potassium Level 3.2 MMOL/L (3.5-5.1) L Chloride Level 106 MMOL/L (98-107) Carbon Dioxide Level 25 MMOL/L (21-32) Anion Gap 11 mmol/L (5-15) Blood Urea Nitrogen 7 mg/dL (7-18) Creatinine 0.6 MG/DL (0.55-1.30) Estimat Glomerular Filtration Rate > 60 mL/min (>60) Glucose Level 108 MG/DL (74-106) H Hemoglobin A1c 5.5 % (4.3-6.0) Calcium Level 8.8 MG/DL (8.5-10.1) Total Bilirubin 3.1 MG/DL (0.2-1.0) H Direct Bilirubin 2.1 MG/DL (0.0-0.3) H Aspartate Amino Transf (AST/SGOT) 531 U/L (15-37) H Alanine Aminotransferase (ALT/SGPT) 579 U/L (12-78) H Alkaline Phosphatase 252 U/L (46-116) H Total Protein 7.4 G/DL (6.4-8.2) Albumin 3.8 G/DL (3.4-5.0) Globulin 3.6 g/dL Albumin/Globulin Ratio 1.1 (1.0-2.7) Triglycerides Level 196 MG/DL (30-150) H Cholesterol Level 150 MG/DL (< 200) LDL Cholesterol 79 mg/dL (<100) HDL Cholesterol 34 MG/DL (40-60) L Cholesterol/HDL Ratio 4.4 (3.3-4.4) Height (Feet): 4 Height (Inches): 6.00 Weight (Pounds): 131 Medications Current Medications Medications (Trade) Dose Ordered Sig/Christian Route PRN Reason Start Time Stop Time Status Last Admin Dose Admin Acetaminophen (Tylenol) 650 mg Q4H PRN ORAL Temp >100.5 05/27/20 20:00 06/26/20 19:59 05/28/20 05:02 Acetaminophen (Tylenol) 650 mg Q6H PRN ORAL For Headache 05/28/20 12:30 06/27/20 12:29 Acetaminophen/ Hydrocodone Bitart ([place] 5/325) 1 tab Q4H PRN ORAL Moderate Pain (Pain Scale 4-6) 05/28/20 12:30 06/04/20 12:29 05/28/20 16:55 Al Hydroxide/Mg Hydroxide (Mylanta II) 30 ml Q6H PRN ORAL dyspepsia 05/27/20 20:00 06/26/20 19:59 05/27/20 22:02 Albuterol/ Ipratropium (Albuterol/ Ipratropium) 3 ml Q6H PRN HHN Shortness of Breath 05/27/20 20:00 06/01/20 19:59 Bisacodyl (Dulcolax) 10 mg HSPRN PRN RECTAL Constipation 05/27/20 21:00 08/25/20 20:59 Dextrose (Dextrose 50%) 25 ml Q30M PRN IV Hypoglycemia 05/28/20 10:15 08/26/20 10:14 Dextrose (Dextrose 50%) 50 ml Q30M PRN IV Hypoglycemia 05/28/20 10:15 08/26/20 10:14 Dextrose/Sodium Chloride 1,000 ml @ 75 mls/hr [id number] IV 05/28/20 12:30 06/27/20 12:29 05/28/20 12:19 Heparin Sodium (Porcine) (Heparin 5000 units/ml) 5,000 units EVERY 12 HOURS SUBQ 05/28/20 21:00 07/12/20 20:59 05/28/20 20:54 Morphine Sulfate (Morphine Sulfate) 2 mg Q4H PRN IVP Severe Pain (Pain Scale 7-10) 05/28/20 12:52 06/04/20 12:51 Nifedipine (Procardia XL) 30 mg DAILY ORAL 05/28/20 09:00 06/27/20 08:59 05/28/20 08:52 Ondansetron HCl (Zofran) 4 mg Q6H PRN IVP Nausea & Vomiting 05/27/20 20:00 06/26/20 19:59 05/28/20 14:56 Piperacillin Sod/ Tazobactam Sod 3.375 gm/Sodium Chloride 110 ml @ 27.5 mls/hr Q8HR IVPB 05/27/20 22:00 06/03/20 21:59 05/28/20 20:53 Polyethylene Glycol (Miralax) 17 gm HSPRN PRN ORAL Constipation 05/27/20 21:00 06/26/20 20:59 Assessment/Plan Problem List: (1) Cholelithiasis ICD Codes: K80.20 - Calculus of gallbladder without cholecystitis without obstruction SNOMED: 067889875 (2) Cholecystitis Assessment & Plan: 40F with acute cholecystitis. afebrile, HD stable. leukocytosis resolved. lfts acute elevated today. MRCP ordreded and no CBD Stone. possible passed a stone. currently pain resolved. is hungry. no n/v/f/c. US noted MRCP noted patient has a 7 months old premie child at home and would prefer to go home laurie. given improvement since admission and symptoms resolving will treat conservatively. consideration for elective cholecystectomy at later date okay for trial diet trend labs cont abx transition to oral for d/c thank you ICD Codes: K81.9 - Cholecystitis, unspecified SNOMED: [id number] Boris Baird May 28, 2020 21:15
--- NOTE | 2020-05-28 21:30 | Consultation ---
DATE OF CONSULTATION: 05/28/2020 GASTROENTEROLOGY CONSULTATION CONSULTING PHYSICIAN: Peter Guthrie MD CHIEF COMPLAINT: I was asked to see this patient for evaluation of abdominal pain. HISTORY OF PRESENT ILLNESS: The patient is a 40-year-old woman who comes into the hospital for 4-day history of right upper quadrant abdominal pain. The patient had similar episode about a year ago and she has got mild about 3 months ago, which lasted 1 day. On this admission, she complains of increased pain with oral intake. There was nausea, but no vomiting. She came to the hospital where she was found to have cholelithiasis and was admitted with presumptive diagnosis of cholecystitis; however, subsequently her bilirubin jumped up and therefore, this consultation was generated. PAST MEDICAL HISTORY: 1. History of sinus infections. 2. Asthma. 3. Hypertension. MEDICATIONS: The patient is at home on blood pressure medications only. FAMILY HISTORY: Positive for gallstones in mother and diabetes in mother. SOCIAL HISTORY: The patient is single. She has 2 children. She does not smoke or drink. REVIEW OF SYSTEMS: Otherwise negative. PHYSICAL EXAMINATION: GENERAL: A pleasant woman, seen in her room. HEENT: Normocephalic and atraumatic. Sclerae anicteric. Oropharynx is clear. NECK: Supple. CHEST: Clear to auscultation. CARDIOVASCULAR: Revealed regular rate. ABDOMEN: Soft with good bowel sounds. There is definite right upper quadrant tenderness to palpation with mild guarding, but no rebound. EXTREMITIES: Revealed no edema. IMAGING STUDIES: Noted. ASSESSMENT: This patient presents with right upper quadrant pain, abnormal liver tests, and also imaging findings of gallbladder with pericholecystic edema consistent with cholecystitis. The patient should be kept NPO until she is cleared and her white count should be followed since it was markedly elevated on admission. The antibiotics should also be given in therapy. Surgical consult has already been obtained and had seen the patient. I will defer timing of the cholecystectomy to the surgical team. The MRI does not show any evidence of choledocholithiasis. Therefore, no ERCP is indicated. RECOMMENDATIONS: Per above discussion and per orders written in the chart. Thank you for asking me to participate in the care of this patient. Peter Guthrie M.D. DR: Lyn JOB#: [id number] CC:
[2020-05-28 23:53] VITALS: BP 130/87
[2020-05-29] MEDS: D5NS 1,000 ML IV SCH (01:50)
[2020-05-29 04:00] VITALS: BP 148/89
[2020-05-29] MEDS: Piperacillin/Tazobactam 3.375 GM in NS 110 ML IVPB SCH (04:58)
[2020-05-29 06:47] LABS: BASOPHILS % (AUTO) 1.7 % (0.0-2.0); EOSINOPHILS % (AUTO) 0.9 % (0.0-3.0); HEMATOCRIT 45.3 % (37.0-47.0); HEMOGLOBIN 16.2 G/DL (12.0-16.0); LYMPHOCYTES % (AUTO) 28.4 % (20.0-45.0); MEAN CORPUSCULAR VOLUME 94 FL (80-99); MONOCYTES % (AUTO) 3.5 % (1.0-10.0); NEUTROPHILS % (AUTO) 65.6 % (45.0-75.0); PLATELET COUNT 501 K/UL (150-450); RED BLOOD COUNT 4.82 M/UL (4.20-5.40); WHITE BLOOD COUNT 10.7 K/UL (4.8-10.8)
[2020-05-29 07:24] LABS: AMYLASE 38 U/L (25-115)
[2020-05-29 07:31] LABS: ALANINE AMINOTRANSFERASE 915 U/L (12-78); ALBUMIN 3.9 G/DL (3.4-5.0); ALKALINE PHOSPHATASE 345 U/L (46-116); ANION GAP 12 mmol/L (5-15); ASPARTATE AMINO TRANSFERASE 459 U/L (15-37); BILIRUBIN,TOTAL 2.7 MG/DL (0.2-1.0); CALCIUM 9.2 MG/DL (8.5-10.1); CARBON DIOXIDE 24 MMOL/L (21-32); CHLORIDE 105 MMOL/L (98-107); CREATININE 0.6 MG/DL (0.55-1.30); POTASSIUM 3.1 MMOL/L (3.5-5.1); SODIUM 141 MMOL/L (136-145)
[2020-05-29 07:41] LABS: BILIRUBIN,DIRECT 1.5 MG/DL (0.0-0.3); BLOOD UREA NITROGEN 6 mg/dL (7-18)
[2020-05-29 08:00] VITALS: BP 149/91
[2020-05-29 08:26] VITALS: BP 149/91
[2020-05-29] MEDS: Heparin 5000 units/ml inj SUBQ SCH (08:27)
--- NOTE | 2020-05-29 12:11 | General Progress Note ---
Subjective ROS Limited/Unobtainable: Yes Allergies: Coded Allergies: No Known Allergies (Unverified , 01/03/17) Objective Last 24 Hour Vital Signs Date Time Temp Pulse Resp B/P (MAP) Pulse Ox O2 Delivery O2 Flow Rate FiO2 05/29/20 09:00 Room Air 05/29/20 08:26 76 149/91 05/29/20 08:00 98.2 76 18 149/91 (110) 97 05/29/20 08:00 74 18 Room Air 21 05/29/20 04:00 98.6 81 16 148/89 (108) 94 05/28/20 23:53 98.1 84 17 130/87 (101) 95 05/28/20 20:20 98.4 89 16 134/85 (101) 95 05/28/20 20:13 Room Air 05/28/20 17:25 98.2 05/28/20 16:00 98.2 75 18 145/97 (113) 95 Intake and Output 05/28/20 05/29/20 18:59 06:59 Intake Total 560.0 ml 1067.5 ml Balance 560.0 ml 1067.5 ml Intake Oral 480 ml IV Total 560.0 ml 587.5 ml # Voids 2 Laboratory Tests 05/29/20 05:31: White Blood Count 10.7, Red Blood Count 4.82, Hemoglobin 16.2H, Hematocrit 45.3, Mean Corpuscular Volume 94, Mean Corpuscular Hemoglobin 33.6H, Mean Corpuscular Hemoglobin Concent 35.7, Red Cell Distribution Width 12.0, Platelet Count 501H, Mean Platelet Volume 7.1, Neutrophils (%) (Auto) 65.6, Lymphocytes (%) (Auto) 28.4, Monocytes (%) (Auto) 3.5, Eosinophils (%) (Auto) 0.9, Basophils (%) (Auto) 1.7, Sodium Level 141, Potassium Level 3.1L, Chloride Level 105, Carbon Dioxide Level 24, Anion Gap 12, Blood Urea Nitrogen 6L, Creatinine 0.6, Estimat Glomerul ar Filtration Rate > 60, Glucose Level 90, Calcium Level 9.2, Total Bilirubin 2.7H, Direct Bilirubin 1.5H, Aspartate Amino Transf (AST/SGOT) 459H, Alanine Aminotransferase (ALT/SGPT) 915H, Alkaline Phosphatase 345H, Total Protein 7.9, Albumin 3.9, Globulin 4.0, Albumin/Globulin Ratio 1.0, Amylase Level 38, Lipase 114 Height (Feet): 4 Height (Inches): 6.00 Weight (Pounds): 131 General Appearance: alert EENT: PERRL/EOMI Neck: normal alignment Cardiovascular: normal peripheral pulses Respiratory/Chest: decreased breath sounds Abdomen: hypoactive bowel sounds, tender Extremities: non-tender Assessment/Plan Problem List: (1) Cholecystitis ICD Codes: K81.9 - Cholecystitis, unspecified SNOMED: [id number] Assessment/Plan: abx MRCP reviewed no need for ERCP fu surg recs Callum Santiago MD May 29, 2020 12:11
--- NOTE | 2020-05-29 12:59 | Surgery Progress Note ---
Surgery Progress Note Subjective Additional Comments afebrile HD stable comfortable pain resolved tolerating diet so far no n/v/f/c labs noted wbc resolved lft's worse with alt>900's t bili slightly improved mri noted patient today states history of Hep B and fatty liver with known lft's elevated in past. unfortunately prior records not available. her symptoms have resolved and abdominal exam is benign. needs further work up before consideration of surgery. currently improved advance diet outpatient follow up Objective Last 24 Hour Vital Signs Date Time Temp Pulse Resp B/P (MAP) Pulse Ox O2 Delivery O2 Flow Rate FiO2 05/29/20 09:00 Room Air 05/29/20 08:26 76 149/91 05/29/20 08:00 98.2 76 18 149/91 (110) 97 05/29/20 08:00 74 18 Room Air 21 05/29/20 04:00 98.6 81 16 148/89 (108) 94 05/28/20 23:53 98.1 84 17 130/87 (101) 95 05/28/20 20:20 98.4 89 16 134/85 (101) 95 05/28/20 20:13 Room Air 05/28/20 17:25 98.2 05/28/20 16:00 98.2 75 18 145/97 (113) 95 I&O Intake and Output 05/28/20 05/29/20 18:59 06:59 Intake Total 560.0 ml 1067.5 ml Balance 560.0 ml 1067.5 ml Intake Oral 480 ml IV Total 560.0 ml 587.5 ml # Voids 2 Cardiovascular: RSR Respiratory: clear Abdomen: soft, non-tender, absent bowel sounds Extremities: no edema, no tenderness, no cyanosis Laboratory Tests Test 05/29/20 05:31 05/29/20 12:25 White Blood Count 10.7 K/UL (4.8-10.8) Red Blood Count 4.82 M/UL (4.20-5.40) Hemoglobin 16.2 G/DL (12.0-16.0) H Hematocrit 45.3 % (37.0-47.0) Mean Corpuscular Volume 94 FL (80-99) Mean Corpuscular Hemoglobin 33.6 PG (27.0-31.0) H Mean Corpuscular Hemoglobin Concent 35.7 G/DL (32.0-36.0) Red Cell Distribution Width 12.0 % (11.6-14.8) Platelet Count 501 K/UL (150-450) H Mean Platelet Volume 7.1 FL (6.5-10.1) Neutrophils (%) (Auto) 65.6 % (45.0-75.0) Lymphocytes (%) (Auto) 28.4 % (20.0-45.0) Monocytes (%) (Auto) 3.5 % (1.0-10.0) Eosinophils (%) (Auto) 0.9 % (0.0-3.0) Basophils (%) (Auto) 1.7 % (0.0-2.0) Sodium Level 141 MMOL/L (136-145) Potassium Level 3.1 MMOL/L (3.5-5.1) L Chloride Level 105 MMOL/L (98-107) Carbon Dioxide Level 24 MMOL/L (21-32) Anion Gap 12 mmol/L (5-15) Blood Urea Nitrogen 6 mg/dL (7-18) L Creatinine 0.6 MG/DL (0.55-1.30) Estimat Glomerular Filtration Rate > 60 mL/min (>60) Glucose Level 90 MG/DL (74-106) Calcium Level 9.2 MG/DL (8.5-10.1) Total Bilirubin 2.7 MG/DL (0.2-1.0) H Direct Bilirubin 1.5 MG/DL (0.0-0.3) H Aspartate Amino Transf (AST/SGOT) 459 U/L (15-37) H Alanine Aminotransferase (ALT/SGPT) 915 U/L (12-78) H Alkaline Phosphatase 345 U/L (46-116) H Total Protein 7.9 G/DL (6.4-8.2) Albumin 3.9 G/DL (3.4-5.0) Globulin 4.0 g/dL Albumin/Globulin Ratio 1.0 (1.0-2.7) Amylase Level 38 U/L (25-115) Lipase 114 U/L (73-393) Hepatitis A IgM Antibody Pending Hepatitis B Surface Antigen Pending Hepatitis B Core IgM Antibody Pending Hepatitis C Antibody Pending Plan Problems: (1) Cholelithiasis (2) Cholecystitis Assessment & Plan: 40F with acute cholecystitis. afebrile, HD stable. leukocytosis resolved. lfts acute elevated today. MRCP ordreded and no CBD Stone. possible passed a stone. currently pain resolved. is hungry. no n/v/f/c. US noted MRCP noted patient has a 7 months old premie child at home and would prefer to go home laurie. given improvement since admission and symptoms resolving will treat conservatively. consideration for elective cholecystectomy at later date okay for trial diet trend labs cont abx transition to oral for d/c thank you Boris Baird May 29, 2020 12:59
--- NOTE | 2020-05-29 20:05 | Cardiology Report ---
APPROVED REPORT EKG Measurement Heart [id number] <Conclusion> Normal sinus rhythm Left axis deviation Pulmonary disease pattern Abnormal ECG
--- NOTE | 2020-05-30 11:02 | General Progress Note ---
Subjective Date patient seen: May 29, 2020 Time patient seen: 10:02 ROS Limited/Unobtainable: No Constitutional: Denies: no symptoms, chills, diaphoresis, fever, malaise, weakness, other HEENT: Denies: no symptoms, eye pain, blurred vision, tearing, double vision, ear pain, ear discharge, nose pain, nose congestion, throat pain, throat swelling, mouth pain, mouth swelling, other Cardiovascular: Denies: no symptoms, chest pain, edema, irregular heart rate, lightheadedness, palpitations, syncope, other Respiratory: Denies: no symptoms, cough, orthopnea, shortness of breath, SOB with excertion, SOB at rest, sputum, stridor, wheezing, other Gastrointestinal/Abdominal: Denies: no symptoms, abdomen distended, abdominal pain, black stools, tarry stools, blood in stool, constipated, diarrhea, difficulty swallowing, nausea, poor appetite, poor fluid intake, rectal bleeding, vomiting, other Genitourinary: Denies: no symptoms, burning, discharge, frequency, flank pain, hematuria, incontinence, pain, urgency, other Neurologic/Psychiatric: Denies: no symptoms, anxiety, depressed, emotional problems, headache, numbness, paresthesia, pre-existing deficit, seizure, tingling, tremors, weakness, other Endocrine: Denies: no symptoms, excessive sweating, flushing, intolerance to co ld, intolerance to heat, increased hunger, increased thirst, increased urine, unexplained weight gain, unexplained weight loss, other Hematologic/Lymphatic: Denies: no symptoms, anemia, easy bleeding, easy bruising, other Allergies: Coded Allergies: No Known Allergies (Unverified , 01/03/17) Subjective No pain at this time Feeling well and ready to try diet Would like to consider further workup with surgery if available Objective Intake and Output 05/29/20 05/30/20 19:00 07:00 Intake Total 120 ml Balance 120 ml Intake Oral 120 ml Laboratory Tests 05/29/20 12:25: Hepatitis A IgM Antibody Negative, Hepatitis B Surface Antigen Negative, Hepatitis B Core IgM Antibody Negative, Hepatitis C Antibody <0.1 Height (Feet): 4 Height (Inches): 6.00 Weight (Pounds): 131 General Appearance: no apparent distress, alert EENT: PERRL/EOMI Neck: supple Cardiovascular: normal rate, regular rhythm Respiratory/Chest: normal breath sounds Abdomen: normal bowel sounds, non tender, soft Extremities: normal range of motion Skin: warm/dry Assessment/Plan Assessment/Plan: Mrs. Younger is a 40F with PMH of Histiocytosis X, asthma, and HTN who presents for cholecystitis # RUQ Pain 2/2 Cholecystitis w/ possible Choledocholithiasis # Cholelithiasis # Leukocytosis - US reviewed showing cholelithiasis w/ signs of cholecystitis - gallbladder wall thickening and pericholecystic fluid - MRCP with no stone causing obstruction - Advance diet as tolerated - likely defer further surgical management as patient is not in pain - continue zosyn for gram neg. and anaerobic coverage - IVF - Surgery following, appreciate recommendations - GI following for possible ERCP #Transaminitis - LFTs elevated during admission, ALT>AST - Patient stated she had HepB, Hep Panel negative for Hep B - Can consider acute hepatitis panel - CTM and trend LFTs #Hx of HTN - Continue Nifedipine #Obese - BMI 34 - Counseled on weight loss #Hx of Histocytosis X CODE: Full Code GI: none DVT: Heparin 5000 mg BID Diet: Advance diet Dispo: Home 1-2 d Time spent on this encounter was 40 minutes which included 20 minutes of counseling and care coordination and review of labs and imaging. I discussed with the nurse at bedside and surgery Dr. Baird. Time of note may not reflect time patient was seen. Judie Gentile M.D. May 30, 2020 11:02
--- NOTE | 2020-05-30 11:07 | Discharge Summary ---
Discharge Summary Hospital Course Date of Admission May 27, 2020 at 17:20 Date of Discharge May 29, 2020 at 13:08 Admitting Diagnosis cholecystitis HPI Humaira Younger is a 40 year old female who was admitted on May 27, 2020 at 17:20 for Cholecystitis Hospital Course Mrs. Younger is a 40F with PMH of Histiocytosis X, asthma, and HTN who presents for cholecystitis - Patient left against Medical Advice # RUQ Pain 2/2 Cholecystitis w/ possible Choledocholithiasis # Cholelithiasis # Leukocytosis Patient was admitted for abdominal pain and concern for cholecystitis and possible choledocolithiasis. US reviwed with cholelithiasis with signs of cholecystitis with gallbaldder wall thickening and pericholecysstic fluid. MRCP performed with no stone causing obstruction. Patient was initially treated with Zosyn and abdominal pain subsided. She was followed by surgery and GI while inpatient. Patient's diet was advanced. She left prior to advancing diet and follow up of LFTs. She signed out against medical advice. #Transaminitis Elevated LFTs possibly related to choledocolithiasis vs. viral hepatitis. C hronic hep panel wnl. Unclear if patient had Hep B in the past as she reported this. She will need f/u to monitor LFTs. #Hx of HTN - Continue Nifedipine #Obese - BMI 34 - Counseled on weight loss #Hx of Histocytosis X Time of note may not reflect time patient was seen. Discharge Discharge Vital Signs Last Vital Signs Date Time Temp Pulse Resp B/P (MAP) Pulse Ox O2 Delivery O2 Flow Rate FiO2 05/29/20 09:00 Room Air 05/29/20 08:26 76 149/91 05/29/20 08:00 98.2 18 97 05/29/20 08:00 21 Discharge Disposition Patient was discharged to Judie Gentile M.D. May 30, 2020 11:07
== END 2020-05-29 13:08 | disposition left against medical advice (07) ==
LOC: EMR 14:33 → 4E 17:20 → EDBEDREQ 20:15
DX: K80.62 Calculus of gallbladder and bile duct with acute cholecystitis without obstruction (principal); E87.6 Hypokalemia; I10 Essential (primary) hypertension; Z90.81 Acquired absence of spleen; J45.909 Unspecified asthma, uncomplicated; E66.9 Obesity, unspecified; Z68.34 Body mass index [BMI] 34.0-34.9, adult; R74.0 Nonspecific elevation of levels of transaminase and lactic acid dehydrogenase [LDH]
CPT/HCPCS: 36415; 74176; 74181; 76705; 80053; 80061; 80307; 81003; 82150; 82248; 83036; 83690; 84484; 85025; 85610; 85730; 86705; 86709; 86803; 87340; 93005; 94664; 96361; 96365; 96375; 96376; 99285; G0480; J2405; J7030; J8499; U0002